=== PATIENT | female | born 2005 | race Caucasian/White ===

== ENCOUNTER 2023-05-14 07:38 | Inpatient (IN) | payer SELFPAY ==
[~2023-05-14] VITALS: Ht 157.5 cm; Wt 45.4 kg
[~2023-05-14 07:38] MED LIST: METHYLERGONOVINE MALEATE 0.2 MG/ML ONE; MISOPROSTOL 200MCG TABLET ONE
[2023-05-14] MEDS ORDERED: PROPOFOL 200MG/20ML VIAL IV ONE (08:11)
[2023-05-14] MEDS ORDERED: LIDOCAINE HCL/PF 1% 10 MG/ML 5ML VIAL ONE (08:11)
[2023-05-14] MEDS ORDERED: SUCCINYLCHOLINE CHLORIDE 200MG/10ML IV ONE (08:14)
[2023-05-14] MEDS ORDERED: MAGNESIUM 4 G PREMIX 100 ML IV NR (08:15)
[2023-05-14] MEDS ORDERED: METHYLERGONOVINE MALEATE 0.2 MG/ML IM PRN (08:15)
[2023-05-14] MEDS ORDERED: MAGNESIUM 20 G PREMIX (L & D) 500 ML IV SCH (08:15)
[2023-05-14] MEDS ORDERED: NALOXONE HCL 0.4 MG/ML 1ML VIAL IM PRN (08:15)
[2023-05-14] MEDS ORDERED: LACTATED RINGERS 1,000 ML IV SCH ×2 (08:15→09:30)
[2023-05-14] MEDS ORDERED: BETAMETHASONE ACET/BETAMET 30 MG/5 ML VIAL IM NR (08:15)
[2023-05-14 08:38] LABS: BASOPHILS % 0.3 % (0.0-2.0); EOSINOPHILS % 0.1 % (0.0-5.0); HEMATOCRIT. 36.7 % (36.0-48.0); HEMOGLOBIN. 12.4 g/dL (12.0-16.0); LYMPHOCYTES % 11.6 % (20.0-50.0); MEAN CORPUSCULAR HEMOGLOBIN 27.8 pg (28.0-32.0); MEAN CORPUSCULAR VOLUME 82.6 fL (81.0-99.0); MEAN PLATELET VOLUME 7.8 fl (7.4-10.4); MONOCYTES % 2.9 % (2.0-8.0); NEUTROPHILS % 85.1 % (40.0-76.0); PLATELET 190 x1000/uL (130-400); RED BLOOD CELL COUNT 4.45 mill/uL (4.2-5.4); RED CELL DISTRIBUTION WIDTH 14.6 % (11.6-14.6)
[2023-05-14] MEDS ORDERED: LIDOCAINE HCL 1% 20ML VIAL (Pyxis) INJ INFIL SCH (08:45)
[2023-05-14] MEDS: OXYTOCIN 30 UNITS/500ML NS PMX 500 ML IV SCH ×2 (08:45→10:29)
[2023-05-14 08:48] LABS: PROTHROMBIN TIME 10.3 sec (9.6-11.0)
[2023-05-14] MEDS ORDERED: IBUPROFEN 800MG TABLET PO PRN (09:30)
[2023-05-14] MEDS ORDERED: RHO(D) IMMUNE GLOBULIN 300 MCG/SYR IM PRN (09:30)
[2023-05-14] MEDS ORDERED: IBUPROFEN 400MG TABLET PO PRN (09:30)
[2023-05-14] MEDS ORDERED: MISOPROSTOL 200MCG TABLET RC NR (09:30)
[2023-05-14 10:41] LABS: CLARITY URINE CLEAR (CLEAR); COLOR URINE YELLOW (YELLOW); KETONES URINE 4+ (NEGATIVE); LEUKOCYTE ESTERASE URINE TRACE (NEGATIVE); NITRITE URINE NEGATIVE (NEGATIVE); OCCULT BLOOD URINE 3+ (NEGATIVE); PROTEIN URINE TRACE (NEGATIVE); SPECIFIC GRAVITY URINE 1.025 (1.005-1.030)
[2023-05-14 11:02] LABS: *AMPHETAMINES SCREEN URINE NEGATIVE (NEGATIVE); *BARBITURATES SCREEN URINE NEGATIVE (NEGATIVE); *BENZODIAZEPINES SCREEN URINE NEGATIVE (NEGATIVE); *COCAINE SCREEN URINE NEGATIVE (NEGATIVE); CANNABINOID URINE SCREEN NEGATIVE (NEGATIVE); METHADONE URINE SCREEN NEGATIVE (NEGATIVE); OPIATES URINE SCREEN NEGATIVE (NEGATIVE); PHENCYCLIDINE URINE SCREEN NEGATIVE (NEGATIVE)
[2023-05-14] MEDS ORDERED: IBUPROFEN 600MG TABLET PO PRN (15:30)
[2023-05-14 16:00] VITALS: PULSE 88; RESP 18; TEMP 98.5
[2023-05-14 16:31] VITALS: BP 110/70; PULSE 90; RESP 18; TEMP 98.6
[2023-05-14 16:39] VITALS: O2SAT 99
[2023-05-14] MEDS: SODIUM CHLORIDE 0.9% INJ 3ML FLUSH IVF SCH (22:58)
[2023-05-14] MEDS: BENZOCAINE/LANOLIN/ALOE VERA SPRAY TOP PRN (23:03)
[2023-05-15] VITALS (9 sets, daily range): BP systolic 93–100; BP diastolic 54–66; PULSE 68–85; RESP 18–20; TEMP 97.7–98.7; O2SAT 96–100
[2023-05-15] MEDS: SODIUM CHLORIDE 0.9% INJ 3ML FLUSH IVF SCH (05:31)
[2023-05-15] MEDS: BENZOCAINE/LANOLIN/ALOE VERA SPRAY TOP PRN (05:32)
[2023-05-15 06:51] LABS: BASOPHILS % 0.1 % (0.0-2.0); HEMATOCRIT. 34.4 % (36.0-48.0); HEMOGLOBIN. 11.3 g/dL (12.0-16.0); LYMPHOCYTES % 17.1 % (20.0-50.0); MEAN CORPUSCULAR HEMOGLOBIN 27.8 pg (28.0-32.0); MEAN CORPUSCULAR VOLUME 84.4 fL (81.0-99.0); MEAN PLATELET VOLUME 8.2 fl (7.4-10.4); MONOCYTES % 4.4 % (2.0-8.0); NEUTROPHILS % 78.4 % (40.0-76.0); PLATELET 188 x1000/uL (130-400); RED BLOOD CELL COUNT 4.07 mill/uL (4.2-5.4); RED CELL DISTRIBUTION WIDTH 14.9 % (11.6-14.6)
[2023-05-15] MEDS ORDERED: PRENATAL VIT/FE FUMARATE/FA TABLET PO SCH (09:00)
[2023-05-15] MEDS ORDERED: FERROUS SULFATE 325MG TABLET PO SCH (09:00)
[2023-05-16 04:00] VITALS: PULSE 67; RESP 18; TEMP 98.7
[2023-05-16] MEDS ORDERED: IBUP-2029 MT (07:09)
[2023-05-16] MEDS ORDERED: TETANUS, DIPHTHERIA, PERTUSSIS VAC/PF 0.5ML (>10YR OLD) IM ONE (07:30)
[2023-05-16 08:00] VITALS: BP 92/52; PULSE 71; RESP 18; TEMP 98.5; O2SAT 97
== END 2023-05-16 14:10 | disposition home or self-care (01) | DRG 560 ==
LOC: OBSVTOIN 07:38 → 8 EST LDRP 07:38 → 8EST 05-15 12:00
PROVIDERS: ADMIT Obstetrics & Gynecology; ATTEND Obstetrics & Gynecology
PROC: 10E0XZZ Delivery of Products of Conception, External Approach (ICD-10-PCS; principal; 2023-05-14)
DX: O60.14X0 Preterm labor third trimester with preterm delivery third trimester, not applicable or unspecified (principal); Z37.0 Single live birth; O34.211 Maternal care for low transverse scar from previous cesarean delivery; Z3A.32 32 weeks gestation of pregnancy; Z82.49 Family history of ischemic heart disease and other diseases of the circulatory system
CPT/HCPCS: 36415; 76805; 80305; 81003; 85025; 86592; 86703; 86762; 86850; 86900; 87340; 88307; 90715; 99281; G0378; J0330; J0702; J2210; J2704; J3475; J3490; J2590

== ENCOUNTER 2024-01-29 10:24 | Emergency (ER) | payer MEDICAID, OTHER ==
[~2024-01-29] VITALS: Ht 157.5 cm; Wt 59.0 kg
[~2024-01-29 10:24] MED LIST changes: +IBUP-2029 MT; -METHYLERGONOVINE MALEATE 0.2 MG/ML ONE; -MISOPROSTOL 200MCG TABLET ONE
[2024-01-29 10:56] VITALS: O2SAT 100
[2024-01-29 13:07] LABS: BASOPHILS % 0.3 % (0.0-2.0); EOSINOPHILS % 3.1 % (0.0-5.0); HEMATOCRIT. 41.7 % (36.0-48.0); HEMOGLOBIN. 14.1 g/dL (12.0-16.0); LYMPHOCYTES % 33.3 % (20.0-50.0); MEAN CORPUSCULAR HEMOGLOBIN 28.4 pg (28.0-32.0); MEAN CORPUSCULAR VOLUME 83.5 fL (81.0-99.0); MEAN PLATELET VOLUME 7.4 fl (7.4-10.4); MONOCYTES % 6.6 % (2.0-8.0); NEUTROPHILS % 56.7 % (40.0-76.0); PLATELET 240 x1000/uL (130-400); RED BLOOD CELL COUNT 4.99 mill/uL (4.2-5.4); RED CELL DISTRIBUTION WIDTH 16.4 % (11.6-14.6); WHITE BLOOD COUNT 6.9 x1000/uL (4.5-11.0)
[2024-01-29 13:23] LABS: ALANINE AMINOTRANSFERASE 16 IU/L (10-49); ALBUMIN 4.4 g/dL (3.2-4.8); ASPARTATE AMINOTRANSFERASE 15 IU/L (<34); B-HCG QUANTITATIVE 146778 mIU/mL (<3); BILIRUBIN TOTAL 0.5 mg/dL (0.1-1.0); CARBON DIOXIDE 25 mEq/L (21-32); CHLORIDE 104 mEq/L (98-107); CREATININE 0.5 mg/dL (0.6-1.0); GLUCOSE 82 mg/dL (70-105); POTASSIUM 4.3 mEq/L (3.5-5.1); PROTEIN TOTAL 6.9 g/dL (6.0-8.3); SODIUM 136 mEq/L (136-145); UREA NITROGEN BLOOD 5 mg/dL (9-23)
[2024-01-29 14:01] LABS: CLARITY URINE CLOUDY (CLEAR); COLOR URINE DARK YELLOW (YELLOW); GLUCOSE URINE NEGATIVE (NEGATIVE); KETONES URINE 1+ (NEGATIVE); LEUKOCYTE ESTERASE URINE 1+ (NEGATIVE); NITRITE URINE NEGATIVE (NEGATIVE); OCCULT BLOOD URINE 3+ (NEGATIVE); PH URINE 8.5 (4.5-8.0); PROTEIN URINE 2+ (NEGATIVE); SPECIFIC GRAVITY URINE 1.024 (1.005-1.030)
[2024-01-29] MEDS: ACETAMINOPHEN 325MG TABLET PO ONE (14:18)
[2024-01-29 14:20] VITALS: BP 111/77; PULSE 76; RESP 14; TEMP 98.3
[2024-01-29 14:55] LABS: BACTERIA URINE 3+; SQUAMOUS EPITHELIAL CELL URINE 3+ /lpf (RARE/1+)
[2024-01-29 14:56] LABS: RBC URINE 0-2 /hpf (0-2)
== END 2024-01-29 14:19 | disposition home or self-care (01) ==
LOC: ER 10:24
DX: O20.0 Threatened abortion (principal); Z3A.09 9 weeks gestation of pregnancy
CPT/HCPCS: 36415; 76801; 80053; 81003; 81025; 84702; 85025; 86850; 86900; 99284

== ENCOUNTER 2024-07-24 07:16 | Emergency (ER) | payer OTHER ==
[2024-07-24] MEDS: ACETAMINOPHEN 1000MG/100ML 100 ML IV ONE (07:39)
[2024-07-24 07:42] LABS: BASOPHILS % 0.6 % (0.0-2.0); DIFFERENTIAL COMMENT 0; EOSINOPHILS % 1.3 % (0.0-5.0); HEMATOCRIT. 33.8 % (36.0-48.0); HEMOGLOBIN. 10.9 g/dL (12.0-16.0); LYMPHOCYTES % 23.9 % (20.0-50.0); MEAN CORPUSCULAR HEMOGLOBIN 23.7 pg (28.0-32.0); MEAN CORPUSCULAR HGB CONC 32.3 g/dL (31.0-37.0); MEAN CORPUSCULAR VOLUME 73.2 fL (81.0-99.0); MEAN PLATELET VOLUME 7.5 fl (7.4-10.4); MONOCYTES % 6.7 % (2.0-8.0); NEUTROPHILS % 67.5 % (40.0-76.0); PLATELET 192 x1000/uL (130-400); RED BLOOD CELL COUNT 4.62 mill/uL (4.2-5.4); RED CELL DISTRIBUTION WIDTH 17.4 % (11.6-14.6)
[2024-07-24 07:51] LABS: CARBON DIOXIDE 21 mEq/L (21-32); CHLORIDE 108 mEq/L (98-107); POTASSIUM 3.4 mEq/L (3.5-5.1); SODIUM 136 mEq/L (136-145)
[2024-07-24 07:52] LABS: CALCIUM 8.9 mg/dL (8.7-10.4)
[2024-07-24 07:57] LABS: CREATININE 0.5 mg/dL (0.6-1.0); GLUCOSE 102 mg/dL (70-105); UREA NITROGEN BLOOD 6 mg/dL (9-23)
[2024-07-24 07:59] LABS: ALANINE AMINOTRANSFERASE 13 IU/L (10-49); ALBUMIN 3.9 g/dL (3.2-4.8); ASPARTATE AMINOTRANSFERASE 18 IU/L (<34); BILIRUBIN TOTAL 0.4 mg/dL (0.1-1.0); PROTEIN TOTAL 6.5 g/dL (6.0-8.3)
[2024-07-24 08:19] LABS: B-HCG QUANTITATIVE 19231 mIU/mL (<3)
[2024-07-24] MEDS: OXYTOCIN 30 UNITS/500ML NS 500 ML IV ONE (09:14)
[2024-07-24 10:56] VITALS: BP 125/75; PULSE 83; RESP 16; TEMP 36.83628; O2SAT 100
== END 2024-07-24 11:10 | disposition short-term general hospital (02) ==
LOC: ER 07:16
DX: O72.1 Other immediate postpartum hemorrhage (principal); Z98.890 Other specified postprocedural states
CPT/HCPCS: 80053; 84702; 85025; 86850; 86900; 86901; 36415; 88307; 86705; 76818; 76805; 96367; 96365; 99285; Z7610; J0131; J2590

== ENCOUNTER 2024-08-28 20:43 | Emergency (ER) | payer OTHER ==
[~2024-08-28] VITALS: Ht 157.5 cm; Wt 52.8 kg
[2024-08-28 22:00] VITALS: O2SAT 100
[2024-08-28 22:30] LABS: CLARITY URINE CLEAR (CLEAR); COLOR URINE YELLOW (YELLOW); GLUCOSE URINE NEGATIVE (NEGATIVE); KETONES URINE NEGATIVE (NEGATIVE); LEUKOCYTE ESTERASE URINE NEGATIVE (NEGATIVE); NITRITE URINE NEGATIVE (NEGATIVE); OCCULT BLOOD URINE NEGATIVE (NEGATIVE); PH URINE 6.5 (4.5-8.0); PROTEIN URINE NEGATIVE (NEGATIVE); SPECIFIC GRAVITY URINE 1.015 (1.005-1.030); UROBILINOGEN URINE 0.2 E.U./dL (0.2-1.0)
[2024-08-28] MEDS: KETOROLAC 30MG/ML VIAL IM STA (22:37)
[2024-08-29 01:08] LABS: DIFFERENTIAL COMMENT 0; EOSINOPHILS % 11.3 % (0.0-5.0); HEMATOCRIT. 30.5 % (36.0-48.0); HEMOGLOBIN. 9.6 g/dL (12.0-16.0); LYMPHOCYTES % 46.6 % (20.0-50.0); MEAN CORPUSCULAR HEMOGLOBIN 22.9 pg (28.0-32.0); MEAN CORPUSCULAR HGB CONC 31.4 g/dL (31.0-37.0); MEAN CORPUSCULAR VOLUME 72.8 fL (81.0-99.0); MONOCYTES % 8.2 % (2.0-8.0); NEUTROPHILS % 32.9 % (40.0-76.0); PLATELET 240 x1000/uL (130-400); RED BLOOD CELL COUNT 4.19 mill/uL (4.2-5.4); RED CELL DISTRIBUTION WIDTH 19.2 % (11.6-14.6); WHITE BLOOD COUNT 6.4 x1000/uL (4.5-11.0)
[2024-08-29 01:10] LABS: CHLORIDE 109 mEq/L (98-107); POTASSIUM 4.2 mEq/L (3.5-5.1); SODIUM 142 mEq/L (136-145)
[2024-08-29 01:11] LABS: CALCIUM 9.5 mg/dL (8.7-10.4); CARBON DIOXIDE 28 mEq/L (21-32)
[2024-08-29 01:16] LABS: CREATININE 0.6 mg/dL (0.6-1.0); GLUCOSE 91 mg/dL (70-105); UREA NITROGEN BLOOD 6 mg/dL (9-23)
[2024-08-29 01:18] LABS: ALANINE AMINOTRANSFERASE 13 IU/L (10-49); ALBUMIN 4.3 g/dL (3.2-4.8); ASPARTATE AMINOTRANSFERASE 17 IU/L (<34); BILIRUBIN TOTAL 0.3 mg/dL (0.1-1.0); PROTEIN TOTAL 6.7 g/dL (6.0-8.3)
[2024-08-29] MEDS ORDERED: ACET-2708 MT (01:52)
[2024-08-29] MEDS ORDERED: FERR324T4 MT (01:52)
[2024-08-29] MEDS: KETOROLAC 30MG/ML VIAL IM NR (02:27)
[2024-08-29 02:30] VITALS: BP 102/68; PULSE 65; RESP 20; TEMP 36.94740; O2SAT 100
== END 2024-08-29 02:47 | disposition home or self-care (01) ==
LOC: ER 20:43
DX: R10.2 Pelvic and perineal pain (principal); D50.9 Iron deficiency anemia, unspecified; Z98.890 Other specified postprocedural states; Z79.899 Other long term (current) drug therapy
CPT/HCPCS: 99285; 76830; 76856; 81003; 81025; 36415; 80053; 85025; 96372; J1885